=== PATIENT | male | born 1960 | race Caucasian/White ===

== ENCOUNTER → 2017-01-26 | Outpatient (CLI) | payer OTHER ==
[~2017-01-26] MED LIST: ACETAMINOPHEN-1 EAC1 PO; CELEBREX200 MG PO; COLACE100 MG PO; DELTASONE5 MG PO; DILAUDID 2MG(HYD2 MG PO; HYDROCODON-ACE1 EAC4 PO; MIRALAX17 GM PO; MOTRIN800 MG PO; NEURONTIN300 MG PO; OXYCONTIN EXTEN10 MG PO; PLAQUENIL200 MG PO; TYLENOL EXTRA500 MG PO; ULTRAM50 MG PO; VALIUM2 MG PO; XARELTO10 MG PO
== END | disposition disaster alternative care site (69) ==
LOC: GCAR 07:30
DX: M06.9 Rheumatoid arthritis, unspecified (principal); R94.39 Abnormal result of other cardiovascular function study

== ENCOUNTER 2017-03-31 09:00 | Inpatient (IN) | payer OTHER ==
[~2017-03-31] VITALS: Ht 188 cm; Wt 82.9 kg
--- NOTE | ~2017-03-31 | DS ---
PATIENT'S NAME: J[facility]AN [facility] AGE: 56 Y [address] ROOM: [address] [address] LOCATION: [facility] ADMIT DATE: 04/13/2017 Discharge Summary DISCHARGE DATE: 04/15/2017 FAMILY PHYSICIAN: Paul Bruner MD ATTENDING PHYSICIAN: Kwame Burch PRIMARY DIAGNOSIS: Degenerative joint disease of the right knee. SECONDARY DIAGNOSES: 1. Rheumatoid arthritis. 2. History of diverticulosis. PROCEDURE PERFORMED: Complex right total knee arthroplasty using computer navigation and revision total knee arthroplasty construct. HISTORY: The patient is a 56-year-old male, who presents with advanced right knee degenerative joint disease and associated severely compromised activities of daily living. The patient has decided to proceed with total knee arthroplasty after having been thoroughly counseled regarding the risks, benefits, limitations and alternatives. Please refer to the outpatient clinic notes and admission history and physical for this patient. HOSPITAL COURSE: The patient underwent a right total knee arthroplasty on 04/13/2017 without complications. The patient received 24 hours of perioperative prophylactic antibiotics and remained hemodynamically stable, neurovascularly intact throughout the entire hospital course. The postoperative prophylactic deep venous thrombosis prophylaxis consisted of Xarelto 10 mg, early mobilization and pneumatic compression devices. Daily physical therapy for gait training, transfer training range of motion and quadriceps isometric exercises were received. The patient progressed well in physical therapy. On the date of discharge, 04/15/2017, the incision at the knee was healing well and showed no signs of infection. DISPOSITION: Home. DISCHARGE ACTIVITY: The patient is to bear weight as tolerated with range of motion and quadriceps isometric exercises as instructed. The operative extremity is to be elevated at least 90% of the day. There is to be sterile 4x4 gauze dressings to the incision daily. Dr. Burch is to be notified immediately if there is any increased pain, fevers, chills erythema or drainage. No range of motion until followup appointment. DISCHARGE MEDICATIONS: 1. Xarelto 10 mg, take 1 tablet p.o. daily for DVT prevention. 2. [place] 5/325, take 1 tablet p.o. t.i.d. p.r.n. pain. [facility] 56 Y [address] ROOM: [address] [address] LOCATION: [facility] ADMIT DATE: 04/13/2017 Discharge Summary DISCHARGE DATE: 04/15/2017 FAMILY PHYSICIAN: Paul Bruner MD ATTENDING PHYSICIAN: Kwame Burch 3. Tramadol 50 mg, take 2 tablets q.i.d. as needed for pain. FOLLOWUP: Followup appointment is to be with Dr. Burch on April 20, 2017 for initial postop evaluation. ERNESTO JIMENEZ FOR KWAME BURCH MD TLB/modl /[id number] P d: 04/28/17 0340 t: 05/05/17 0809, DISCHARGE SUMMARY
--- NOTE | ~2017-03-31 | OR ---
PATIENT'S NAME: JONATAN [facility] AGE: 56 Y [address] ROOM: [place] [address] LOCATION: [facility] ADMIT DATE: 04/13/2017 OR/Procedure Report DISCHARGE DATE: FAMILY PHYSICIAN: Paul Bruner MD ATTENDING PHYSICIAN: KWAME PEREZ SURGEON: Kwame Perez MD JAVA LEAD ARCHITECT: Danish Hunt PA-C and Zachary Martin CST/DRIER TAKE OFF TENDER. DATE OF PROCEDURE: 04/13/2017 PRE-OP DIAGNOSIS: 1. 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 2. Severe valgus deformity with medial collateral ligament insufficiency. POST-OP DIAGNOSIS: 1. 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 2. Severe valgus deformity with medial collateral ligament insufficiency. OPERATION: Complex primary right total knee arthroplasty using computer navigation and revision total knee arthroplasty construct. ANESTHESIA: Spinal anesthesia plus adductor canal block plus periarticular local anesthesia (ropivacaine with epinephrine and Toradol). ESTIMATED BLOOD LOSS: Less than 10 mL. DRAIN: None. SPECIMEN: Synovial fluid for cell count, Gram stain, and routine cultures. COMPLICATIONS: None. IMPLANT SYSTEM: [place] [employer] Size 7 right total stabilized femoral component with 15 x 50 mm cemented femoral stem. Size 6 [place] Modular tibial base plate with 12 x 50 cemented tibial stem. Small tibial canal cement restrictor. Medium femoral canal cement restrictor. A 13-mm, size 6, X3 total stabilized tibial polyethylene insert. A 35 mm X3 patella component (triple pegged). INDICATIONS FOR SURGERY: Lenka Cheung is a 56-year-old male, who presents with advanced right knee degenerative joint disease and associated severely compromised activities of daily living. The patient has decided to proceed with knee replacement after having been thoroughly counseled regarding the PATIENT'S NAME: JONATAN [facility] AGE: 56 Y [address] ROOM: [place] [address] LOCATION: [facility] ADMIT DATE: 04/13/2017 OR/Procedure Report DISCHARGE DATE: FAMILY PHYSICIAN: Paul Bruner MD ATTENDING PHYSICIAN: KWAME PEREZ associated risks, benefits, and limitations. We have specifically reviewed the risks and implications of infection, deep venous thrombosis, pulmonary embolism, mortality, neurovascular complications, blood transfusion (and associated potential for disease transmission or transfusion reaction), stiffness, instability, mechanical deterioration of the components (due to wear and or loosening), and the potential need for revision. We have also emphasized the importance of active involvement and compliance with post- operative physical therapy as a means of optimizing range of motion and functional recovery. Informed consent has been granted. DESCRIPTION OF PROCEDURE: The patient was positioned supine after administration of anesthesia and prophylactic antibiotics. A well-padded pneumatic tourniquet was placed around the right proximal thigh, and the right lower extremity was prepped and draped with vigilant sterile technique. The patient's name as well as the intended operative side and procedure were confirmed with a verbal time-out involving myself, the circulating nurse, the scrub nurse, and the anesthesiologist. Examination under anesthesia demonstrated a well-healed midline arthrotomy scar. There was a large effusion. There was no erythema. There was no abnormal warmth. There was a 30- degree valgus deformity. The deformity was not passively correctable. There were no active skin lesions or masses. Range of motion under anesthesia was from full extension to 95 degrees of flexion. The right lower extremity was elevated and exsanguinated with an Esmarch wrap, and the pneumatic tourniquet was inflated to 300 mmHg. The knee was approached through a longitudinal midline incision. A medial parapatellar arthrotomy was performed and the patella was everted. Examination of the joint space demonstrated a large amount of slightly cloudy translucent synovial fluid. There was no proliferative synovitis. There was a 1 cm x 5 mm x 2 cm loose body at the lateral margin of the lateral compartment. There was full-thickness loss of articular cartilage throughout the lateral femoral condyle and lateral tibial plateau. There was deep erosion of the posterolateral half of the lateral tibial plateau subchondral bone. There was extensive subchondral osseous erosion at the lateral femoral condyle. There were generalized grade 3 degenerative changes at the patella and femoral trochlea. There were large osteophytes at the medial and lateral femoral condyles. There was a 2-cm linear tear at the posterior horn of the medial meniscus. There was a small peripheral macerated degenerative remnant of the lateral meniscus. The anterior cruciate ligament was absent. The posterior cruciate ligament was intact. There was a 1-cm subchondral cyst at the posterior central aspect of the tibial plateau. PATIENT'S NAME: JONATAN, LENKA [facility] AGE: 56 Y [address] ROOM: [address] [place], [place] [address] LOCATION: [facility] ADMIT DATE: 04/13/2017 OR/Procedure Report DISCHARGE DATE: FAMILY PHYSICIAN: Paul Bruner MD ATTENDING PHYSICIAN: KWAME PEREZ Remnants of the menisci and cruciate ligaments were excised. The [employer] computer navigation femoral tracker was pinned in place at the distal aspect of the femoral trochlea. Absence of motion between the femur and the tracking device was confirmed manually and visually. Femoral osseous landmarks were obtained in order to calibrate the computer navigation system. Landmarks included the center of rotation of the ipsilateral hip, the center-point of the distal femur, the femoral AP axis, 57 points on the medial femoral condyle articular surface, and 57 points on the lateral femoral condyle articular surface. The YapTime computer navigation system was subsequently utilized to position the distal femoral resection block such that the distal femoral resection was performed perfectly perpendicular to the femoral mechanical axis. The distal femoral resection was performed with a [employer] oscillating saw. The YapTime computer navigation tibial tracker was pinned in place at the anterior aspect of the tibial plateau. Absence of motion between the tibia and the tracking device was confirmed manually and visually. Tibial osseous landmarks were obtained in order to calibrate the computer navigation system. Landmarks included the center-point of the tibial plateau, the AP tibial axis, 57 points on the medial tibial plateau articular surface, 57 points on the lateral tibial plateau articular surface, the medial malleolus, and the lateral malleolus. The YapTime computer navigation system was subsequently utilized to position the proximal tibial resection block such that the proximal tibial resection was performed perfectly perpendicular to the tibial mechanical axis. The proximal tibial resection was performed with a [employer] Precision oscillating saw. Perpendicularity of the tibial resection with respect to the tibial shaft axis was reconfirmed by inserting a spacer- block attached to an extramedullary guide christoph. External rotation of the anterior and posterior femoral resections was set parallel to the epicondylar axis and carefully adjusted in order to create a rectangular flexion gap. The box resection was performed with a reciprocating saw. Anterior and posterior chamfer resections were performed with the oscillating saw. Posterior condyle osteophytes were excised with an osteotome. All other osteophytes were excised with a rongeur. Resection of all remnants of the menisci was reconfirmed. Flexion and extension gaps were confirmed to be symmetric with a spacer-block technique, albeit with significant MCL laxity in extension. The patella resection was performed with an oscillating saw such that the composite thickness of the reconstructed patella was equivalent to the thickness of the [place] patella. Patella tracking was confirmed to be optimal. There was no need for a lateral retinacular release. Complete release of the popliteus tendon was necessary in order to balance the flexion gap. Extensive iliotibial band release was not sufficient to balance the extension gap. Even after extensive release of the iliotibial band, there was PATIENT'S NAME: JONATAN LENKA [facility] AGE: 56 Y [address] ROOM: [address] [place] [id number] LOCATION: [facility] ADMIT DATE: 04/13/2017 OR/Procedure Report DISCHARGE DATE: FAMILY PHYSICIAN: Paul Bruner MD ATTENDING PHYSICIAN: KWAME PEREZ 6 mm of medial collateral ligament laxity in full extension. For this reason, a constrained tibial polyethylene insert was indicated. Because of the constrained insert, femoral and tibial canals were prepared to accept stem extensions. A lateral retinacular release was required in order to optimize patella tracking. All trial components were removed and all prepared osseous surfaces were thoroughly irrigated with pulsatile saline lavage and dried prior to cementing all three components in a single stage using [employer] Simplex cement containing pre-mixed tobramycin. All extruded excess cement was removed. The entire joint space was thoroughly inspected and thoroughly irrigated with bacteriostatic pulsatile saline lavage to assure that there was no residual debris of any sort. Final range of motion was from full extension (with no passive hyperextension) degrees of extension to 130 degrees of flexion. Patella tracking was reconfirmed to be optimal. There was excellent anteroposterior stability at 90 degrees of flexion. There was 1 mm (with the constrained insert in place) of medial lift-off to valgus stress in full extension. There was 0 mm of lateral lift-off to varus stress in full extension. The arthrotomy was closed with multiple simple and [id number] interrupted #1 Vicryl. Subcutaneous tissues were thoroughly re-irrigated with bacteriostatic pulsatile saline lavage. Subcutaneous tissues were re- approximated with simple buried interrupted #0 Vicryl sutures. The skin was closed with simple buried interrupted 2-0 Vicryl sutures followed by surgical kassandra. The dressing consisted of Xeroform gauze, 4x4 gauze, ABD pads and two 6-inch Albin Wraps. There were no intra-operative complications. It should be noted that the physician's engineer assistant played an active, integral role throughout this entire operation. By providing expert retraction, they greatly facilitated and expedited safe and effective exposure of the distal femur, proximal tibia and patella for preparation and implantation of the components. They were also actively involved in the patient's positioning, prepping and draping, as well as wound closure. Of note, a 22-modifier was indicated for this procedure based upon the complexity of the case. The time and effort required to prepare the distal femur and proximal tibia (and the complexity of the case) were far more extensive than for a standard total knee arthroplasty. The complexity and time required for this case was commensurate with that which is required for a revision total knee arthroplasty. PATIENT'S NAME: LENKA CHEUNG [facility] AGE: 56 Y [address] ROOM: [place] [address] LOCATION: [facility] ADMIT DATE: 04/13/2017 OR/Procedure Report DISCHARGE DATE: FAMILY PHYSICIAN: Paul Bruner MD ATTENDING PHYSICIAN: KWAME PEREZ MD REMINGTON ZENDEJAS/modl /[id number] d: 04/14/17 0304 t: 04/15/17 2204, OPERATIVE SUMMARY
[~2017-03-31 09:00] MED LIST changes: -ACETAMINOPHEN-1 EAC1 PO; -CELEBREX200 MG PO; -COLACE100 MG PO; -DILAUDID 2MG(HYD2 MG PO; -MIRALAX17 GM PO; -NEURONTIN300 MG PO; -OXYCONTIN EXTEN10 MG PO; -TYLENOL EXTRA500 MG PO; -VALIUM2 MG PO; -XARELTO10 MG PO
[2017-04-01] MEDS ORDERED: ACETAMINOPHEN-1 EAC1 PO (13:45)
--- NOTE | 2017-04-14 05:00 | NUR ---
Significant Event: Alert and oriented X3. Vital signs stable. On RA. Dressing to R) knee is CDI. Had Spinal and adductor canal block. Spinal has worn off, has full sensation everywhere but anterior lower leg, lundy area. Pt states this area has a "numb" feeling, pt can feel sensation but is not same comapred to L) leg. Dr. Burch notified of sensation. We are to keep a pillow behind the knee, flexed at 30 degrees. We are to notify Dr. Burch of ANY numbness or tinlging in RLE or toes or EHL/TA weakness (dorsiflexion). We are to keep a pillow behind the patients R) knee when in chair or in bed. WBAT. No ROM. Has a HX of RA, L) ankle edematous, R) wrist edematous. Pt stood at side of bed with 2 person assist and took a few steps, unsteady. Voiding without difficulty. IV saline locked this am. Dilaudid/valium/toradol/tylenol given for pain, will update with times. Had all teeth removed due to abcess'. Does not have dentures at this time. Follow up:
--- NOTE | 2017-04-14 12:35 | NUR ---
Introduced self/role to patient. Lives alone here in [place], works at [employer]. His daughter Arianna will be around to assist him as needed. He reports having all the DME he thinks he needs except the toilet riser. He is not sure if he will need one. Let him know the places where he could pick one up if he changes his mind. He stated he has friends in the nursing world that could help him too if he needed something. Denied any barriers to discharge or to going home. Added my name to his marker board. He plans to go home tomorrow.
--- NOTE | 2017-04-14 17:11 | NUR ---
D: Dilaudid 2mg x4, last at 1527. Toradol 15mg at 1527. Valium 2.5mg at 1201. Dilaudid 0.2mg IVP at 1053. Dressing dry/intact. Numbness to right lundy. Ambulates with walker 1A. Has been up in chair most of the day.
--- NOTE | 2017-04-14 18:59 | NUR ---
I reviewed and approve of charting by Yesenia Fuentes,SN
--- NOTE | 2017-04-15 04:41 | NUR ---
Significant Event: Patient alert and oriented. Up with 1 assist. Increased pain but managed with oral and IVP medications. Rested off/on throughtout night. Right lundy remain numb and tingly at times. Pleasant and cooperative with cares. Follow up: continue to monitor
[2017-04-15] MEDS ORDERED: TYLENOL EXTRA500 MG PO (12:30)
[2017-04-15] MEDS ORDERED: COLACE100 MG PO (12:33)
[2017-04-15] MEDS ORDERED: NEURONTIN300 MG PO (12:34)
[2017-04-15] MEDS ORDERED: MIRALAX17 GM PO (12:38)
[2017-04-15] MEDS ORDERED: XARELTO10 MG PO (12:39)
[2017-04-15] MEDS ORDERED: VALIUM2 MG PO (12:41)
[2017-04-15] MEDS ORDERED: DILAUDID 2MG(HYD2 MG PO (12:41)
[2017-04-15] MEDS ORDERED: CELEBREX200 MG PO (12:42)
[2017-04-15] MEDS ORDERED: OXYCONTIN EXTEN10 MG PO (12:43)
--- NOTE | 2017-04-15 15:20 | NUR ---
D: Patient dismissed to home with daughter's assistance. Taking analgesic prn for pain with relief. Rt knee incision approximated with kassandra. CSM WNL to rt leg except slight numbness to rt lundy. Ambulates with walker and one assist. Gait steady. Patient and daughter voice understanding of dismissal instructions, RX and belongings.
--- NOTE | 2017-04-15 16:20 | NUR ---
D: I reviewed and approve of charting by Yesenia Fuentes RN
== END 2017-04-15 15:27 | disposition disaster alternative care site (69) | DRG 470 ==
LOC: G3N 04-13 13:56
PROVIDERS: ADMIT Orthopaedic Surgery
PROC: 0SRC0J9 Replacement of Right Knee Joint with Synthetic Substitute, Cemented, Open Approach (ICD-10-PCS; principal; 2017-04-13)
PROC: XR2G021 Monitoring of Right Knee Joint using Intraoperative Knee Replacement Sensor, Open Approach, New Technology Group 1 (ICD-10-PCS; principal; 2017-04-13)
DX: M17.11 Unilateral primary osteoarthritis, right knee (principal); M06.9 Rheumatoid arthritis, unspecified; M21.061 Valgus deformity, not elsewhere classified, right knee
CPT/HCPCS: C1713; C1776; J0690; J1100; J1170; J1885; J2001; J2250; J2300; J2795; J7120; J7512

== ENCOUNTER → 2017-04-02 | Outpatient (CLI) | payer OTHER ==
[~2017-04-02] MED LIST changes: +ACETAMINOPHEN-1 EAC1 PO; +CELEBREX200 MG PO; +COLACE100 MG PO; +DILAUDID 2MG(HYD2 MG PO; +MIRALAX17 GM PO; +NEURONTIN300 MG PO; +OXYCONTIN EXTEN10 MG PO; +TYLENOL EXTRA500 MG PO; +VALIUM2 MG PO; +XARELTO10 MG PO
== END | disposition disaster alternative care site (69) ==
LOC: GNJRC 11:00
DX: Z01.812 Encounter for preprocedural laboratory examination (principal); M17.11 Unilateral primary osteoarthritis, right knee